=== PATIENT | female | born 1960 | race Caucasian/White ===

== ENCOUNTER 2017-11-04 10:06 | Emergency (ER) | payer OTHER ==
[2017-11-04] MEDS: LIDOCAINE WITH 8.4% SOD BICARB 3 ML DISP.SYRIN. IJ (11:17)
[2017-11-04] MEDS: DIPHTH,PERTUSS(ACELL),TET TOX 0.5 ML DISP.SYRIN. VAX IM (11:18)
== END 2017-11-04 11:25 | disposition home or self-care (01) ==
LOC: ER 10:06
DX: S71.111A Laceration without foreign body, right thigh, initial encounter (principal); E78.00 Pure hypercholesterolemia, unspecified; I11.9 Hypertensive heart disease without heart failure; Z95.0 Presence of cardiac pacemaker; Z90.710 Acquired absence of both cervix and uterus; Z79.01 Long term (current) use of anticoagulants; W26.0XXA Contact with knife, initial encounter; Y93.89 Activity, other specified; Y92.89 Other specified places as the place of occurrence of the external cause; Y99.8 Other external cause status
CPT/HCPCS: 12002; 90471; 90715; 99283-25

== ENCOUNTER → 2017-12-11 | Outpatient (CLI) | payer OTHER | END | disposition home or self-care (01) | LOC: ECHO 09:40 | DX: I51.89 Other ill-defined heart diseases (principal); I35.1 Nonrheumatic aortic (valve) insufficiency | CPT/HCPCS: 93306 ==

== ENCOUNTER → 2019-11-20 | Outpatient (CLI) | payer OTHER ==
[2017-11-04 10:12] VITALS: BP 151/82
[~2019-11-20] MED LIST: ALBU2.5V8 IH; APIX5TAB PO; ASPI-482 PO; BENZ200C47 PO; FAMO20TA5 PO; FLUT100D IH; FURO40TA4 PO; HYDR-3164 PO; LEVO500T59 PO; LISI2.5T PO; METO25TA4 PO; SACU1TAB PO; SPIR25TA PO
--- NOTE | 2019-11-20 12:26 | CARD ---
MR#: [id number] Date of Study: 11/20/2019 Ordering Physician: CHARITY RODNEY, Referring Physician: CHARITY RODNEY, Tech: Diana Whitney RASHMI APPROVED REPORT EXAM: Two-dimensional and M-mode echocardiogram with Doppler and color Doppler. Other Information Quality : Good INDICATION Non-Ischemic Cardiomyopathy Surgery/Intervention ICD/Pacemaker: Date: 05/2016 2D DIMENSIONS RVDd2.5 (2.9-3.5cm)Left Atrium(2D)3.7 (1.6-4.0cm) IVSd0.8 (0.7-1.1cm)Aortic Root(2D)2.9 (2.0-3.7cm) LVDd7.4 (3.9-5.9cm)LVOT Diameter2.0 (1.8-2.4cm) PWd0.8 (0.7-1.1cm)LVDs6.7 (2.5-4.0cm) FS (%) 9.5 %SV57.6 ml LVEF(%)15.0 (>50%) M-Mode DIMENSIONS LVDd7.13 (4.0-5.6cm)MV EPSS2.2 (<0.5cm) FS (%) 11 %LVDs6.37 (2.0-3.8cm) LVEF(%)23 (>50%) Aortic Valve AoV Peak Matthew.90.0cm/sAoV VTI19.3cm AO Peak GR.3.2mmHgLVOT Peak Matthew.67.2cm/s LVOT VTI 13.01cmAO Mean GR.2mmHg ELFEGO (VMAX)2.61wy7ZLD (VTI)2.17cm2 Mitral Valve MV E Afqdqpjr75.1cm/sMV DECEL CHMM652pl MV A Taxnimhw08.7cm/sMV YUS12rp E/A Ratio3.0MVA (PHT)3.79cm2 TDI E/Medial E'20.9 Tricuspid Valve TR P. Ytubwqrk686wy/sRAP WZJRGFVO8oyWv TR Peak Gr.97mqXqSLXP49ydIr Pulmonary Vein S1 Jeszvfig11.5cm/sD2 Dptydani56.2cm/s LEFT VENTRICLE The Left Ventricle is severely dilated. There is normal left ventricular wall thickness. Left ventric le systolic function is severely impaired. The Ejection Fraction is 15-20%. There is severe global hy pokinesis of the left ventricle. Tissue Doppler imaging reveals moderate left ventricular diastolic d ysfunction. No left ventricle thrombus noted on this study. RIGHT VENTRICLE The right ventricle is normal size. The right ventricular systolic function is normal. There is a pac emaker lead in the right ventricle. ATRIA The left atrium size is normal. The right atrium size is normal. A pacemaker is seen in the right atr ium consistent with history. The interatrial septum is intact with no evidence for an atrial septal d efect or patent foramen ovale as noted on 2-D or Doppler imaging. AORTIC VALVE The aortic valve is normal in structure and function. Doppler and Color Flow revealed trace aortic re gurgitation. There is no significant aortic valvular stenosis. MITRAL VALVE The mitral valve is normal in structure and function. There is no evidence of mitral valve prolapse. There is no mitral valve stenosis. Doppler and Color-flow revealed trace mitral regurgitation. TRICUSPID VALVE The tricuspid valve is normal in structure and function. Doppler and Color Flow revealed physiologica l tricuspid regurgitation. The PA pressure was estimated at 17 mmHg. There is no tricuspid valve sten osis. PULMONIC VALVE The pulmonic valve is not well visualized. Doppler and Color Flow revealed no pulmonic valvular regur gitation. There is no pulmonic valvular stenosis. GREAT VESSELS The aortic root is normal in size. The ascending aorta is normal in size. The IVC is normal in size a nd collapses >50% with inspiration. PERICARDIAL EFFUSION There is no evidence of significant pericardial effusion. Critical Notification Critical Value: No <Conclusion> Left ventricle systolic function is severely impaired. The Ejection Fraction is 15-20%. There is severe global hypokinesis of the left ventricle. There is a pacemaker lead in the right ventricle. The Left Ventricle is severely dilated. Signed by : Charity Rodney, Electronically Approved : 11/20/2019 12:26:01
== END | disposition home or self-care (01) ==
LOC: ECHO 10:50
PROVIDERS: ATTEND Internal Medicine Cardiovascular Disease
DX: I36.1 Nonrheumatic tricuspid (valve) insufficiency (principal); I42.9 Cardiomyopathy, unspecified; I51.89 Other ill-defined heart diseases
CPT/HCPCS: 93306

== ENCOUNTER → 2020-07-08 | Outpatient (CLI) | payer OTHER ==
[2017-11-04 10:12] VITALS: BP 151/82
--- NOTE | 2020-07-08 10:59 | CARD ---
MR#: [id number] Date of Study: 07/08/2020 Ordering Physician: CHARITY RODNEY, Referring Physician: CHARITY RODNEY, Tech: Diana Whitney [facility] [[email or web address]] APPROVED REPORT EXAM: Two-dimensional and M-mode echocardiogram with Doppler and color Doppler. Other Information Quality : Good INDICATION Non-Ischemic Cardiomyopathy Surgery/Intervention ICD/Pacemaker: Date: 2015 2D DIMENSIONS RVDd2.6 (2.9-3.5cm)Left Atrium(2D)3.6 (1.6-4.0cm) IVSd0.9 (0.7-1.1cm)Aortic Root(2D)3.6 (2.0-3.7cm) LVDd7.3 (3.9-5.9cm)LVOT Diameter2.3 (1.8-2.4cm) PWd0.8 (0.7-1.1cm)LVDs6.5 (2.5-4.0cm) FS (%) 11.2 %SV67.1 ml LVEF(%)23.6 (>50%) M-Mode DIMENSIONS LVDd7.29 (4.0-5.6cm)MV EPSS2.4 (<0.5cm) FS (%) 17 %LVDs6.04 (2.0-3.8cm) ESV(Teich)182.7 mlLVEF(%)35 (>50%) Aortic Valve AoV Peak Matthew.114.9cm/sAoV VTI22.4cm AO Peak GR.5.3mmHgLVOT Peak Matthew.83.0cm/s AO Mean GR.3mmHgAVA (VMAX)2.87cm2 ELFEGO (VTI)2.94rg1ST P 1/2 Hwkc651oa Mitral Valve MV E Wmaxaosd83.4cm/sMV DECEL NPPH846vm MV A Ennyjnhx40.2cm/sE/A Ratio0.6 Tricuspid Valve TR P. Ixnjbywr849kj/sRAP IVBCFGJQ3pwRm TR Peak Gr.53heKcQMBP96dpFr Pulmonary Vein S1 Mnyrjxsz44.5cm/sD2 Lefftrvv17.0cm/s LEFT VENTRICLE The Left Ventricle is severely dilated. There is normal left ventricular wall thickness. Left ventric le systolic function is severely impaired. The Ejection Fraction is 15-20%. There is severe global hy pokinesis of the left ventricle. Transmitral Doppler flow pattern is Grade I-abnormal relaxation charis williams. RIGHT VENTRICLE The right ventricle is normal size. The right ventricular systolic function is normal. There is a pac emaker lead in the right ventricle. ATRIA The left atrium size is normal. The right atrium size is normal. A pacemaker is seen in the right atr ium consistent with history. The interatrial septum is intact with no evidence for an atrial septal d efect or patent foramen ovale as noted on 2-D or Doppler imaging. AORTIC VALVE The aortic valve is calcified but opens well. Doppler and Color Flow revealed trace aortic regurgitat ion. There is no significant aortic valvular stenosis. MITRAL VALVE The mitral valve is normal in structure and function. There is no evidence of mitral valve prolapse. There is no mitral valve stenosis. Doppler and Color Flow revealed no mitral valve regurgitation note d. TRICUSPID VALVE The tricuspid valve is normal in structure and function. Doppler and Color Flow revealed trace tricus pid regurgitation. The PA pressure was estimated at 24 mmHg. There is no tricuspid valve stenosis. PULMONIC VALVE The pulmonary valve is normal in structure and function. Doppler and Color Flow revealed trace pulmon ic valvular regurgitation. There is no pulmonic valvular stenosis. GREAT VESSELS The aortic root is normal in size. The ascending aorta is mildly dilated at 3.4 cm. The IVC is normal in size and collapses >50% with inspiration. PERICARDIAL EFFUSION There is no evidence of significant pericardial effusion. Critical Notification Critical Value: No <Conclusion> Left ventricle systolic function is severely impaired. The Ejection Fraction is 15-20%. Transmitral Doppler flow pattern is Grade I-abnormal relaxation pattern. There is a pacemaker lead in the right atrium and right ventricle. Doppler and Color Flow revealed trace tricuspid regurgitation. The PA pressure was estimated at 24 mmHg. There is no evidence of significant pericardial effusion. Signed by : Ronald Downs, Electronically Approved : 07/08/2020 10:59:29
== END | disposition home or self-care (01) ==
LOC: ECHO 09:37
PROVIDERS: ATTEND Internal Medicine Cardiovascular Disease
DX: I35.8 Other nonrheumatic aortic valve disorders (principal); I42.9 Cardiomyopathy, unspecified; Z95.0 Presence of cardiac pacemaker
CPT/HCPCS: 93306

== ENCOUNTER → 2020-12-09 | Outpatient (CLI) | payer OTHER ==
[2017-11-04 10:12] VITALS: BP 151/82
--- NOTE | 2020-12-09 10:14 | KCIC ---
EXAM: Bilateral screening mammogram. HISTORY: 60-year-old female presents for screening mammography. TECHNIQUE: Full-field digital craniocaudal and mediolateral oblique views of both breasts are obtaine d for evaluation. Computer aided detection was applied. COMPARISON: 11/30/2015 BREAST PARENCHYMAL DENSITY: Level B - Scattered fibroglandular densities. FINDINGS: There is no new suspicious mass, microcalcification or region of architectural distortion. There is a stable circumscribed nodule within the anterior 8:00 position of the right breast. There a re stable areas of asymmetry elsewhere within both breasts. There is a left cardiac pacemaker generat or within the wkies-jw-bvjg. IMPRESSION: BI-RADS Category 2: Benign finding(s). RECOMMENDATION: Annual mammography is recommended. If your mammogram demonstrates that you have dense breast tissue, which could hide abnormalities, and if you have other risk factors for breast cancer that have been identified, you might benefit from s upplemental screening tests that may be suggested by your ordering physician. Dense breast tissue, i n and of itself, is a relatively common condition. This information is not provided to cause undue c oncern, but rather to raise your awareness and to promote discussion with your physician regarding th e presence of other risk factors, in addition to dense breast tissue. A report of your mammography re sults will be sent to you and your physician. You should contact your physician if you have any ques tions or concerns regarding this report. Mammography is a sensitive method for finding small breast cancers, but it does not detect them all a nd is not a substitute for careful clinical examination. A negative mammogram does not negate a clin ically suspicious finding and should not result in delay in biopsying a clinically suspicious abnorma lity. PQRS compliance statement - Patient information was entered into a reminder system with a target due date for the next mammogram. "Our facility is accredited by the [employer] Mammography Program." Electronically signed by: Rosa Delong MD (12/09/2020 10:12 AM) [facility]
== END ==
LOC: KCIC MAMMO 08:05
PROVIDERS: ATTEND Family Medicine
DX: Z12.31 Encounter for screening mammogram for malignant neoplasm of breast (principal)
CPT/HCPCS: 77067